=== PATIENT | male | born 1950 | race Two or more races ===

== ENCOUNTER → 2017-03-23 | Outpatient (CLI) | payer SELFPAY ==
[2017-03-23 11:37] LABS: FREE T4 (FREE THYROXINE) 1.19 ng/dL (0.78-2.19)
[2017-03-23 11:51] LABS: THYROID STIMULATING HORMONE 2.78 uIU/mL (0.47-4.68)
[2017-03-25 16:39] LABS: 24 HR URINE CREAT RESULT 0.5 mg/day (0.8-2.0)
[2017-03-27 08:30] LABS: CALCIUM RANDOM URINE 40.5 mg/dL (Not Estab.); CALCIUM URINE 24HR 232.9 mg/24 hr (100.0-300.0)
== END ==
LOC: OD 10:10
PROVIDERS: ATTEND Otolaryngology
DX: E21.3 Hyperparathyroidism, unspecified (principal)
CPT/HCPCS: 36415; 82310; 82340; 82570; 83970; 84439; 84443

== ENCOUNTER → 2017-05-12 | Outpatient (CLI) | payer OTHER | LOC: RAD 12:59 | PROVIDERS: ATTEND Otolaryngology | DX: E21.3 Hyperparathyroidism, unspecified (principal) | CPT/HCPCS: 70492; 82565 ==

== ENCOUNTER 2017-06-10 09:20 | Day surgery (SDC) | payer OTHER ==
[2017-05-31 12:23] LABS: HEMATOCRIT 46.4 % (37.9-51.0); HEMOGLOBIN 15.7 g/dL (13.5-17.0); MEAN CORPUSCULAR HEMOGLOBIN 29.6 pg (27.0-33.4); MEAN CORPUSCULAR HGB CONC 33.9 g/dL (32.0-36.0); MEAN CORPUSCULAR VOLUME 87 fl (80-97); RED BLOOD COUNT 5.31 10^6/uL (4.35-5.55); RED CELL DISTRIBUTION WIDTH 14.5 % (11.5-14.0)
[2017-05-31 12:34] LABS: ANION GAP 13 (5-19); BLOOD UREA NITROGEN 32 mg/dL (7-20); CARBON DIOXIDE 25 mmol/L (22-30); CHLORIDE 104 mmol/L (98-107); GLUCOSE 179 mg/dL (75-110); POTASSIUM 5.1 mmol/L (3.6-5.0); SODIUM 141.7 mmol/L (137-145)
[2017-05-31 12:54] LABS: PLATELET COUNT 237 10^3/uL (150-450)
[2017-05-31 13:16] LABS: CALCIUM 13.3 mg/dL (8.4-10.2)
--- NOTE | 2017-05-31 13:26 | EKG REPORT ---
SEVERITY:- OTHERWISE NORMAL ECG - SINUS RHYTHM BORDERLINE LEFT AXIS DEVIATION : Confirmed by: Eitan Mejia MD 31-May-2017 13:25:17
[~2017-06-10 09:20] MED LIST: CEFAZOLIN SODIUM 2 GM in NORMAL SALINE 100 ML IV PRN; LACTATED RINGERS 1000 ML IV PRN; LIDOCAINE 0.5% INJ-PF (5 MG/ML) 50 ML SDV SUBCUT PRN
[2017-06-10 10:41] LABS: POTASSIUM 4.7 mmol/L (3.6-5.0)
[2017-06-10] MEDS ORDERED: LIDOCAINE 2%/EPINEPHRINE INJ 1.7 ML CARTRIDGE ONE (14:11)
[2017-06-10] MEDS ORDERED: LIDOCAINE 2% INJ-PF (20 MG/ML) 10 ML AMPUL ONE (14:16)
[2017-06-10] MEDS ORDERED: ONDANSETRON HCL INJ/PF 4 MG/2 ML SDV ONE (14:17)
[2017-06-10] MEDS ORDERED: FENTANYL CITRATE INJ/PF 100 MCG/2 ML AMPUL ONE (14:17)
[2017-06-10] MEDS ORDERED: DEXAMETHASONE SOD PHOSPHATE INJ 4 MG/1 ML VIAL ONE (14:17)
[2017-06-10] MEDS ORDERED: MIDAZOLAM 2 MG/2 ML INJ ONE (14:17)
[2017-06-10] MEDS ORDERED: ACETAMINOPHEN 100 ML IV ONE (14:18)
[2017-06-10] MEDS ORDERED: PROPOFOL INJ 200 MG/20 ML VIAL IV ONE (14:18)
[2017-06-10] MEDS ORDERED: OXYCODONE-ACETAMINOPHEN 5-325 MG TABLET PO PRN ×2 (15:06)
[2017-06-10] MEDS ORDERED: MORPHINE SULFATE 10 MG/ML INJ IV PRN (15:06)
[2017-06-10] MEDS ORDERED: FENTANYL CITRATE INJ/PF 100 MCG/2 ML AMPUL IV PRN ×3 (15:06)
[2017-06-10] MEDS ORDERED: DIPHENHYDRAMINE HCL 50 MG/ML VIAL IV PRN (15:06)
[2017-06-10] MEDS ORDERED: PROMETHAZINE HCL INJ 25 MG/1 ML VIAL IV PRN ×3 (15:06→16:40)
[2017-06-10] MEDS ORDERED: MEPERIDINE HCL/PF INJ 25 MG/1 ML DISP.SYRIN IV PRN (15:06)
[2017-06-10] MEDS ORDERED: ONDANSETRON 4 MG TAB.RAPDIS PO PRN (16:37)
[2017-06-10] MEDS ORDERED: HYDROCODONE/ACETAMINOPHEN 5-325 MG TABLET PO PRN (16:37)
[2017-06-10] MEDS ORDERED: HYDROCOD/ACETAMIN 7.5-325 MG/15 ML ORAL SOLN UDCUP PO PRN (16:40)
[2017-06-10] MEDS ORDERED: RINGERS SOLUTION,LACTATED 1,000 ML IV PRN (16:40)
[2017-06-10] MEDS ORDERED: ONDANSETRON HCL INJ/PF 4 MG/2 ML SDV IV PRN (16:40)
[2017-06-10 19:03] VITALS: BP 111/75
--- NOTE | 2017-06-13 09:44 | OPERATIVE REPORT E ---
Operative Report NAME: CHAPIS MCCANN : 1950 AGE: 66Y DATE OF SURGERY: 06/10/2017 ROOM: PREOPERATIVE DIAGNOSIS: Right parathyroid adenoma. POSTOPERATIVE DIAGNOSIS: Right parathyroid adenoma. OPERATION PERFORMED: Right parathyroidectomy/parathyroid adenoma removal. SURGEON: HAI TRINIDAD D.O. ANESTHESIA: General endotracheal tube, Anesthesia staff. ANESTHESIA STAFF: Rogelio CONTE ESTIMATED BLOOD LOSS: 5 mL. FLUIDS: 1250 mL. COMPLICATIONS: None. DRAINS: None. SPONGE COUNT: Verified. NEEDLE COUNT: Verified. MATERIALS FORWARDED SPECIMEN: Right parathyroid adenoma. FINDINGS: Right parathyroid adenoma measuring approximately 2 x 1.5 cm in dimensions located at the lateral aspect of the right inferior thyroid lobe. This correlated directly with CT soft tissue neck with contrast imaging performed preoperatively. INDICATIONS: This is a 66-year-old male patient who was seen and evaluated in the [facility]. The patient had been referred for, and he voiced concern regarding the history of symptoms and findings consistent with a right parathyroid adenoma. The patient's PTH level was 274, and his serum calcium level was over 13. The patient had also undergone imaging in the past which was consistent with a right-sided parathyroid adenoma and more recent CT soft tissue neck with contrast imaging with findings consistent with a right inferior thyroid area parathyroid adenoma. After extensive discussion with the patient, recommendation and plan was made to proceed with a right parathyroidectomy/parathyroid adenoma removal which the patient voiced an understanding of and desired to proceed with. The procedures an all of their risks and complications were all discussed in detail. The patient voiced an understanding, agreed to proceed, and consent was obtained. PROCEDURE: The patient was taken to the main operating room and placed on the operating room table in the supine position. Appropriate monitors were placed. Using mask and IV access, general anesthesia was induced. The patient was then transorally intubated without difficulty. The anterior neck was marked with a surgical marking pen for the incision site followed by infiltration of local anesthetic with epinephrine. The patient was then prepped and draped in a sterile fashion for thyroid/parathyroid surgery. The skin was incised down to the level of the subcutaneous tissues then platysma. Flaps were elevated in the sub-platysmal plane. Strap muscles were identified and divided in the midline. The right thyroid lobe was clearly identified especially the mid and inferior aspects. The right mid through inferior lateral lobe of the thyroid was mobilized without difficulty. During this process, findings consistent with a right inferior parathyroid adenoma were clearly identified. This was mobilized and removed without difficulty. Bipolar electrocautery was used throughout this process to provide adequate hemostasis. The wound bed was thoroughly irrigated with normal saline. Adequate hemostasis was noted. The strap muscles were then re-approximated in the midline with Vicryl suture. The platysma and subcutaneous tissues were also re-approximated with Vicryl suture. Monocryl 5-0 suture was used to re-approximate the deep dermal layers as well as re-approximating the skin margins with a continuous dermal suture. The skin was then cleaned and dried followed by placement of Mastisol and Steri-Strips. More than 10 minutes after the parathyroid adenoma was removed, a blood draw was performed for a stat-I PTH level. Intraoperative frozen section was also consistent with a 1.6 gram parathyroid adenoma. At this point, the patient was returned to the Anesthesia Staff and was allowed to emerge from general anesthesia. The patient was extubated in the main operating room and was then transported to the Postanesthesia Recovery Unit in stable condition. There were no complications. DICTATING PHYSICIAN: HAI TRINIDAD D.O. 1952M [id number] PHY#: [id number] ID: [id number] JOB#: [id number] ACCT: [id number] cc:HAI TRINIDAD D.O. >
== END 2017-06-10 18:50 | disposition home or self-care (01) ==
LOC: OROUT 09:20
PROVIDERS: ATTEND Otolaryngology
PROC: 0GTN0ZZ Resection of Right Inferior Parathyroid Gland, Open Approach (ICD-10-PCS; principal; 2017-06-10 11:30)
DX: D35.1 Benign neoplasm of parathyroid gland (principal); E21.0 Primary hyperparathyroidism; E11.9 Type 2 diabetes mellitus without complications; I10 Essential (primary) hypertension; Z80.8 Family history of malignant neoplasm of other organs or systems; Z87.891 Personal history of nicotine dependence
CPT/HCPCS: 93005; 36415 ×2; 82947; 84132; 85027; 80048; 83970; 88305 ×2; 88331 ×2; 93010; 60500; J2250; J3490 ×2; J0690; J1100; J3010; J2405; J2704; J0131; 320

== ENCOUNTER → 2017-06-29 | Outpatient (CLI) | payer OTHER ==
[2017-06-29 08:29] LABS: HEMATOCRIT 43.3 % (37.9-51.0); HEMOGLOBIN 14.4 g/dL (13.5-17.0); MEAN CORPUSCULAR HEMOGLOBIN 29.2 pg (27.0-33.4); MEAN CORPUSCULAR HGB CONC 33.3 g/dL (32.0-36.0); MEAN CORPUSCULAR VOLUME 88 fl (80-97); PLATELET COUNT 262 10^3/uL (150-450); RED BLOOD COUNT 4.93 10^6/uL (4.35-5.55); RED CELL DISTRIBUTION WIDTH 14.1 % (11.5-14.0); WHITE BLOOD COUNT 6.5 10^3/uL (4.0-10.5)
[2017-06-29 08:43] LABS: ALANINE AMINOTRANSFERASE 34 U/L (21-72); ALBUMIN 4.2 g/dL (3.5-5.0); ALKALINE PHOSPHATASE 81 U/L (38-126); ANION GAP 15 (5-19); ASPARTATE AMINO TRANSFERASE 20 U/L (17-59); BILIRUBIN,DIRECT 0.3 mg/dL (0.0-0.4); BILIRUBIN,TOTAL 0.3 mg/dL (0.2-1.3); BLOOD UREA NITROGEN 30 mg/dL (7-20); CALCIUM 9.8 mg/dL (8.4-10.2); CARBON DIOXIDE 25 mmol/L (22-30); CHLORIDE 106 mmol/L (98-107); CHOLESTEROL 222.91 mg/dL (0-200); GLUCOSE 165 mg/dL (75-110); POTASSIUM 4.8 mmol/L (3.6-5.0); SODIUM 145.6 mmol/L (137-145); TOTAL PROTEIN 6.9 g/dL (6.3-8.2); TRIGLYCERIDES 307 mg/dL (<150)
[2017-06-29 08:54] LABS: DIRECT LDL 133 mg/dL (<100)
[2017-06-29 08:58] LABS: VLDL CHOLESTEROL 61.4 mg/dL (10-31)
[2017-06-30 11:40] LABS: CREATININE URINE 92.8 mg/dL (Not Estab.)
[2017-06-30 12:23] LABS: MICROALBUMIN URINE <3.0 ug/mL (Not Estab.)
== END ==
LOC: LAB 08:04
PROVIDERS: ATTEND Nurse Practitioner
DX: E11.9 Type 2 diabetes mellitus without complications (principal); E78.5 Hyperlipidemia, unspecified
CPT/HCPCS: 36415; 80053; 80061; 82043; 82570; 83036; 84443; 85027

== ENCOUNTER → 2017-12-14 | Outpatient (CLI) | payer OTHER ==
[2017-12-14 09:03] LABS: HEMATOCRIT 42.8 % (37.9-51.0); HEMOGLOBIN 14.3 g/dL (13.5-17.0); MEAN CORPUSCULAR HGB CONC 33.5 g/dL (32.0-36.0); MEAN CORPUSCULAR VOLUME 86 fl (80-97); PLATELET COUNT 223 10^3/uL (150-450); RED BLOOD COUNT 4.95 10^6/uL (4.35-5.55); WHITE BLOOD COUNT 6.1 10^3/uL (4.0-10.5)
[2017-12-14 09:23] LABS: ALANINE AMINOTRANSFERASE 25 U/L (21-72); ALBUMIN 4.5 g/dL (3.5-5.0); ALKALINE PHOSPHATASE 61 U/L (38-126); ASPARTATE AMINO TRANSFERASE 23 U/L (17-59); BLOOD UREA NITROGEN 29 mg/dL (7-20); CARBON DIOXIDE 24 mmol/L (22-30); CHLORIDE 106 mmol/L (98-107); CHOLESTEROL 157.62 mg/dL (0-200); GLUCOSE 134 mg/dL (75-110); POTASSIUM 4.6 mmol/L (3.6-5.0); TOTAL PROTEIN 7.2 g/dL (6.3-8.2)
[2017-12-14 09:24] LABS: CALCIUM 9.2 mg/dL (8.4-10.2); TRIGLYCERIDES 215 mg/dL (<150)
[2017-12-14 09:25] LABS: ANION GAP 10 (5-19); SODIUM 140.4 mmol/L (137-145)
[2017-12-14 09:34] LABS: DIRECT LDL 88 mg/dL (<100)
[2017-12-14 09:52] LABS: BILIRUBIN,TOTAL 0.5 mg/dL (0.2-1.3)
== END ==
LOC: LAB 08:39
PROVIDERS: ATTEND Nurse Practitioner
DX: E11.9 Type 2 diabetes mellitus without complications (principal); E78.5 Hyperlipidemia, unspecified; E21.3 Hyperparathyroidism, unspecified; E89.2 Postprocedural hypoparathyroidism
CPT/HCPCS: 36415; 80053; 80061; 82652; 83036; 83970; 84443; 85027